=== PATIENT | female | born 1965 | race Caucasian/White ===

== ENCOUNTER → 2021-02-01 | Outpatient (CLI) | payer OTHER | LOC: KOH-I 14:14 | DX: M25.511 Pain in right shoulder (principal) | CPT/HCPCS: 73030 ==

== ENCOUNTER → 2021-05-15 | Outpatient (CLI) | payer OTHER | LOC: KOH-I 16:08 | DX: M47.814 Spondylosis without myelopathy or radiculopathy, thoracic region (principal) | CPT/HCPCS: 72070 ==